=== PATIENT | male | born 1970 | race Caucasian/White ===

== ENCOUNTER 2022-06-29 12:13 | Emergency (ER) | payer OTHER, SELFPAY ==
--- NOTE | 2022-06-29 12:24 | ED.URI ---
HPI - URI/Sore Throat General Chief Complaint: Upper Respiratory Infection Stated Complaint: Sore Throat/Bodyaches Time Seen by Provider: 06/29/22 12:28 Source: patient, RN notes reviewed and old records reviewed Mode of arrival: ambulatory Limitations: no limitations History of Present Illness HPI Narrative: 51-year-old male presents to the [facility] with complaints of a sore throat and body aches since Sunday, 3 days. Has taken [id number] cold and flu medication with no relief. MD elicited complaint: sore throat Related Data Allergies Allergy/AdvReac Type Severity Reaction Status Date / Time No Known Allergies Allergy Mild Verified 06/29/22 12:23 Review of Systems Review of Systems: All systems reviewed & are unremarkable except as noted in HPI and below Constitutional: Constitutional: Reports as per HPI, Reports body ache(s) and Reports chills Eyes: Eyes: Reports no additional eye complaints ENT: Reports as per HPI and Reports sore throat Cardiovascular: Cardiovascular: Reports no additional cardiovascular complaints, Denies chest pain and Denies dyspnea Respiratory: Respiratory: Reports no additional respiratory complaints, Denies chest congestion, Denies cough and Denies dyspnea Gastrointestinal: Gastrointestinal: Reports no additional gastrointestinal complaints, Denies abdominal pain, Denies nausea and Denies vomiting Musculoskeletal: Musculoskeletal: Reports no additional musculoskeletal complaints Integumentary/Breasts: Skin/Breast: Reports system reviewed and no additional complaints, except as docu Neurologic: Reports system reviewed and no additional complaints, except as documented Psychiatric: Psychiatric: Reports no additional psychiatric complaints Allergic/Immunologic: Allergic/Immunologic: Reports no additional allergic/immunologic complaints PMFSH Comments At the time of my signature, I reviewed and agree with the nursing past medical, surgical, social, and family history. There is no relevant family history pertinent to the patient complaint. Exam Const: General: cooperative, healthy appearing, comfortable, no acute distress, well developed, alert and well nourished Nutritional Appearance: well nourished Orientation/consciousness: patient oriented x3 Limitations: no limitations HENMT: Head: normal to inspection Ears: hearing grossly normal bilaterally and external ears normal Face/Nose/Sinus: Normal external nose present, Normal nares present, Normal nasal mucous membranes and turbinates present and normal facial exam Face and sinus: normal facial exam Mouth: Yes Normal oral and palatal mucosa present, Yes lip normal and Yes moist mucous membranes Throat: uvula midline, abnormal tonsil bilateral erythema, exudates and hypertrophy 2+ and posterior oropharynx abnormal erythema; no edema and no exudates Eyes: General: appearance normal, both eyes and all related structures Alignment and Position: alignment normal Periorbital: periorbital findings normal Conjunctivae: conjunctivae normal Pupils: Equal, round and reactive pupils present EOM: EOMs intact bilaterally Neck: Neck: normal visual inspection, full ROM, no lymphadenopathy and no meningeal signs Chest: Chest palpation & inspection: normal inspection of the chest Resp: Effort & Inspection: normal respiratory effort and able to speak in complete sentences Auscultation: clear to auscultation bilaterally, no crackles, no rales, no rhonchi and no wheezes Cardio: Rate: regular rate Rhythm: regular rhythm Back/Spine/Pelvis: Cervical Spine: cervical ROM normal Thoracic/Lumbar Spine: No thoracic spinal tenderness Skin: General skin exam: normal color and no rashes or lesions noted Lesions: no lesions Rashes: no rashes Wounds: no wounds Neuro: General: patient oriented x3, gait normal, tone normal, moves all extremities and no meningeal signs Cranial nerves: Yes Equal, round and reactive pupils present Cognition (Neuro): normal
[2022-06-29 12:25] VITALS: BP 122/84; PULSE 107; RESP 18; TEMP 36.6; O2SAT 99
== END 2022-06-29 12:42 | disposition home or self-care (01) ==
PROVIDERS: Emergency Provider Nurse Practitioner
DX: J02.0 Streptococcal pharyngitis (principal); Z20.822 Contact with and (suspected) exposure to COVID-19
CPT/HCPCS: 87426; 87804; 87880; 99213; C9803; G0463

== ENCOUNTER 2022-12-19 19:39 | Emergency (ER) | payer OTHER, SELFPAY ==
--- NOTE | ~2022-12-19 | XR_ITS ---
EXAM: XR ankle RT min 3V DATE: 12/19/2022 20:21 HISTORY: pain . COMPARISON: None available. FINDINGS: Normal mineralization. No fracture or dislocation. No lytic or blastic lesion. Joint space s are maintained. Severe Achilles and mild plantar enthesopathy. No erosion or periosteal change. Sof t tissues within normal limits. IMPRESSION: No acute osseous finding in the right ankle. Reviewed, dictated and finalized at location [facility].
--- NOTE | ~2022-12-19 | XR_ITS ---
EXAM: XR shoulder RT min 2V DATE: 12/19/2022 20:21 HISTORY: pain . COMPARISON: None available. FINDINGS: Normal mineralization. No fracture or dislocation. No lytic or blastic lesion. Mild degene rative change at the AC joint. Degenerative subchondral cysts in the superolateral aspect of the briana ral head. No erosion or periosteal change. Soft tissues within normal limits. IMPRESSION: No acute osseous finding in the right shoulder. Reviewed, dictated and finalized at location [facility].
--- NOTE | ~2022-12-19 | XR_ITS ---
EXAM: XR wrist LT min 3V DATE: 12/19/2022 20:21 HISTORY: pain . COMPARISON: None available. FINDINGS: Normal mineralization. No fracture or dislocation. No lytic or blastic lesion. Mild degene rative change at the triscaphe and trapeziometacarpal joint. No erosion or periosteal change. Apparen t small dorsal skin defect and soft tissue swelling about the distal forearm. IMPRESSION: No acute osseous finding in the left wrist. Possible dorsal skin defect and distal forear m soft tissue swelling, correlate clinically. Reviewed, dictated and finalized at location [facility]. IMPRESSION: No acute osseous finding in the left wrist. Possible dorsal skin de fect and distal forearm soft tissue swelling, correlate clinically.
[2022-12-19 19:41] VITALS: BP 168/103; PULSE 77; RESP 16; TEMP 36.5; O2SAT 99
--- NOTE | 2022-12-19 20:53 | ED.GENADULT ---
HPI - General Adult General Chief complaint: Unspecified Stated complaint: boxes fell on patient at [facility] Time Seen by Provider: 12/19/22 20:44 History of Present Illness HPI narrative: This is a 52-year-old male presenting to ED after a diaper incident at [facility]. Patient was walking through the hallways with and some diapers fell off of a [place] and struck him. He put his body in front of his 3-year-old grandson to protect him and was hit in the right shoulder left wrist and right ankle. patient has head trauma, LOC, chest pain, difficulty breathing, abdominal pain, numbness tingling weakness in extremity.. He has been ambulatory since the incident. He he came in the hospital via ambulance because [facility] insisted. Related Data Allergies Allergy/AdvReac Type Severity Reaction Status Date / Time No Known Allergies Allergy Mild Verified 12/19/22 19:39 Exam Narrative: APPEARANCE: No apparent distress. Head: atraumatic. EYES: EOMI, NOSE: Atraumatic NECK: Trachea midline RESPIRATORY: No increased rate of breathing Clear to auscultation CARDIOVASCULAR: RRR, ABDOMINAL: Non-distended MUSCULOSKELETAl: point tenderness over the right parathoracic muscles. No pain on AP and lateral loading of the ribcage. Mild swelling over the dorsum of the left wrist with no pain on movement or crepitus. Pain over the distal medial aspect of the left elkins without swelling or deformity. Patient is able ambulate without difficulty. NEURO: Alert. Moving 4/4 extremities SKIN:: Warm, dry. Normal color PSYCHIATRIC: Normal affect Course Vital Signs Vital signs: Vital Signs Temperature 97.7 F 12/19/22 19:41 Pulse Rate 77 12/19/22 19:41 Respiratory Rate 16 12/19/22 19:41 Blood Pressure 168/103 H 12/19/22 19:41 Pulse Oximetry 99 12/19/22 19:41 Oxygen Delivery Room Air 12/19/22 19:41 Temperature 97.7 F 12/19/22 19:41 Pulse Rate 77 12/19/22 19:41 Respiratory Rate 16 12/19/22 19:41 Blood Pressure 168/103 H 12/19/22 19:41 Pulse Oximetry 99 12/19/22 19:41 Oxygen Delivery Room Air 12/19/22 19:41 Medical Decision Making MDM Narrative Medical decision making narrative: -Presentation: 52-year-old male presenting after several boxes of diapers fell on it while not. He has several minor complaints including right shoulder pain left wrist pain and right ankle pain. x-rays were negative. Physical exam is unremarkable the patient is well appearing. Patient be discharged primary care follow-up. 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 -Interventions: Motrin Tylenol Robaxin -Shared decision making / Disposition: discharge -RX: Motrin Tylenol Robaxin Vital Signs Vital Signs: Vital Signs Temperature 97.7 F 12/19/22 19:41 Pulse Rate 77 12/19/22 19:41 Respiratory Rate 16 12/19/22 19:41 Blood Pressure 168/103 H 12/19/22 19:41 Pulse Oximetry 99 12/19/22 19:41 Oxygen Delivery Room Air 12/19/22 19:41 Temperature 97.7 F 12/19/22 19:41 Pulse Rate 77 12/19/22 19:41 Respiratory Rate 16 12/19/22 19:41 Blood Pressure 168/103 H 12/19/22 19:41 Pulse Oximetry 99 12/19/22 19:41 Oxygen Delivery Room Air 12/19/22 19:41 Discharge Plan Discharge Clinical Impression: Acute shoulder pain, Acute wrist pain, Acute ankle pain Patient Disposition: Home, Self-Care Condition: Stable Instructions: Antibiotic Form, Wrist Injury (ED), Muscle Strain (DC) Prescriptions: New acetaminophen 500 mg tablet 1,000 mg PO TID PRN (Reason: jeferson) 7 Days Qty: 42 0RF ibuprofen 800 mg tablet 800 mg PO TID PRN (Reason: pain) 7 Days Qty: 21 0RF
[2022-12-19] MEDS: ACETAMINOPHEN 500 MG TABLET 1000 MG PO (21:03)
[2022-12-19] MEDS: IBUPROFEN 400 MG TABLET 800 MG PO (21:03)
[2022-12-19] MEDS: methocarbamoL 750 MG TABLET 1500 MG PO (21:03)
== END 2022-12-19 21:15 | disposition home or self-care (01) ==
LOC: ANHED 21:11
PROVIDERS: Emergency Provider Emergency Medicine
DX: S49.91XA Unspecified injury of right shoulder and upper arm, initial encounter (principal); S99.911A Unspecified injury of right ankle, initial encounter; S69.92XA Unspecified injury of left wrist, hand and finger(s), initial encounter; W20.8XXA Other cause of strike by thrown, projected or falling object, initial encounter
CPT/HCPCS: 73030; 73110; 73610; 99284; A9270

== ENCOUNTER 2023-01-01 06:58 | Outpatient (CLI) | payer OTHER, SELFPAY ==
--- NOTE | ~2023-01-01 | XR_ITS ---
Thoracic spine: Clinical Indication: Back pain AP and lateral views were performed. No fracture is seen. There is normal alignment of the vertebrae. The intervertebral disc spaces appe ar normal. Paravertebral soft tissues appear normal. Impression: No significant abnormalities noted. Reviewed, dictated and finalized at [facility] [place]. Impression: No significant abnormalities noted.
--- NOTE | ~2023-01-01 | CT_ITS ---
CT Scan of the Chest without Contrast: Clinical Indication: Lung cancer screening, personal history of nicotine dependence Technique: Contiguous sections were acquired throughout the chest without intravenous contrast. Dose reduction technique was used on this scan by utilizing automated exposure control and iterative recon struction technique. The dose-length product (DLP) was 192.87 mGy-cm. Findings: There is no evidence of any significant mediastinal, hilar or axillary lymphadenopathy. The mediastin al soft tissues appear normal. There is no evidence of pleural or pericardial effusion. Small calcified right lower lobe granuloma noted. No other pulmonary nodule seen.. Images through the upper abdomen reveal no abnormalities. Impression: Lung RADS 2: Benign appearance. 12 month follow-up screening CT advised. Reviewed, dictated and finalized at location . Impression: Lung RADS 2: Benign appearance. 12 month follow-up screening CT advised.
--- NOTE | ~2023-01-01 | XR_ITS ---
Lumbosacral Spine: AP and lateral views Clinical History: Pain Findings: The normal lordotic curve is maintained. The vertebral bodies and posterior elements are i ntact. The intervertebral disc spaces are preserved. The sacroiliac joints are normally outlined. Impression: No significant abnormality. Reviewed, dictated and finalized at [facility]. Impression: No significant abnormality.
== END 2023-01-01 06:59 | disposition home or self-care (01) ==
PROVIDERS: PCP Emergency Medicine; Visit Provider Emergency Medicine
DX: M54.9 Dorsalgia, unspecified (principal); Z12.2 Encounter for screening for malignant neoplasm of respiratory organs; Z87.891 Personal history of nicotine dependence
CPT/HCPCS: 71271; 72072; 72100